=== PATIENT | male | born 1980 | race Caucasian/White ===

== ENCOUNTER → 2022-12-18 | Outpatient (CLI) | payer OTHER | LOC: PLD 07:28 → LAB SHORT 07:28 | DX: R23.8 Other skin changes (principal) | CPT/HCPCS: 88312 ==

== ENCOUNTER 2025-05-16 06:07 | Day surgery (SDC) | payer OTHER ==
[2025-05-16] VITALS (16 sets, daily range): BP systolic 113–136; BP diastolic 71–107
[~2025-05-16] VITALS: Ht 167.6 cm; Wt 86.8 kg
[~2025-05-16 06:07] MED LIST: FLAX PO; GARLIC200 MG PO; LOSA50 PO; VITAMIN D310 MC4 PO; VITAMIN K2100 MCG PO
--- NOTE | 2025-05-16 07:25 | NUR ---
05/16/25 0725 Valerie Paiz CONFIRMED AND REVIEWED H&P, MEDCICATIONS, ALLERGIES, MEDICAL HISTORY, RESPIRATORY HISTORY, VITAL SIGNS, 3-LEAD EKG, CONSENTS, AND PHYSICIAN ORDERS. PATIENT CONFIRMS NPO STATUS AND AGREES WITH SCHEDULED PROCEDURE. MONITOR INTACT WITH CONTINUOUS PULSE OXIMETRY, CAPNOGRAPHY, 3-LEAD EKG, INTERMITTENT BP. SUPPLEMENTAL O2 TO BE TITRATED THROUGHOUT PROCEDURE TO MAINTAIN O2 SATURATION ABOVE 90%. PATIENT DETERMINED TO BE ASA APPROPRIATE FOR PROPOFOL SEDATION PRIOR TO START OF PROCEDURE BY DR. BAH MALLAMPATI CLASS 2 AIRWAY: COMPLETE VISUALIZATION OF THE UVULA.
--- NOTE | 2025-05-16 08:42 | NUR ---
Patient States Post-Procedure ride home has been arranged. Discharged via wheelchair to private car for ride home. Discharge instructions reviewed with patient. Patient verbalizes understanding. Copy given to patient to take home.
== END 2025-05-16 23:00 | disposition home or self-care (01) ==
LOC: ORSCMMR 06:07
PROVIDERS: Surgery
PROC: 0DJD8ZZ Inspection of Lower Intestinal Tract, Via Natural or Artificial Opening Endoscopic (ICD-10-PCS; principal; 2025-05-16 07:30)
DX: Z12.11 Encounter for screening for malignant neoplasm of colon (principal); I10 Essential (primary) hypertension; E78.5 Hyperlipidemia, unspecified; Z79.899 Other long term (current) drug therapy
CPT/HCPCS: J2704; J7120